=== PATIENT | female | born 1990 | race African-American/Black ===

== ENCOUNTER 2019-04-12 17:47 | Emergency (ER) | payer OTHER ==
[~2019-04-12] VITALS: Ht 165.1 cm; Wt 147.0 kg
[~2019-04-12 17:47] MED LIST: AMOXICILLIN 50500 M1 PO; NOHOMEMEDICATIONS
[2019-04-12] MEDS ORDERED: CLARITIN-D 121 EAC1 PO (21:52)
[2019-04-12] MEDS ORDERED: FLONASE 0.05%50 MCG NASAL (21:52)
[2019-04-12] MEDS ORDERED: PREDNISONE 20 M20 MG PO (21:52)
[2019-04-12 22:00] VITALS: BP 115/73
== END 2019-04-12 22:01 | disposition home or self-care (01) ==
LOC: EDBD 17:47 → ER 17:47
DX: R51 Headache (principal); J32.0 Chronic maxillary sinusitis; J45.909 Unspecified asthma, uncomplicated; Z87.891 Personal history of nicotine dependence

== ENCOUNTER 2020-09-30 21:48 | Emergency (ER) | payer OTHER ==
[~2020-09-30] VITALS: Ht 165.1 cm; Wt 174.2 kg
[~2020-09-30 21:48] MED LIST changes: +CLARITIN-D 121 EAC1 PO; +FLONASE 0.05%50 MCG NASAL; +OCUFLOX5 ML OPHTHALMIC; +PREDNISONE 20 M20 MG PO
[2020-09-30 23:07] LABS: URINE BILIRUBIN NEGATIVE (Negative); URINE BLOOD 1+ (Negative); URINE CLARITY CLOUDY; URINE COLOR YELLOW; URINE GLUCOSE-RANDOM* NEGATIVE (Negative); URINE KETONES NEGATIVE (Negative); URINE NITRITE-REFLEX NEGATIVE (Negative); URINE PROTEIN (DIPSTICK) TRACE (Negative); URINE UROBILINOGEN 0.2 E.U./dl (0.2-1.0)
[2020-09-30 23:12] LABS: URINE LEUKOCYTES-REFLEX 3+ (Negative)
[2020-09-30 23:16] LABS: CASTS None Seen /LPF (None Seen); CRYSTALS None Seen /LPF (None Seen); MUCUS 4-6 Moderate strn/LPF (None Seen); SQUAMOUS 0-3 Few /LPF (0-3); URINE RBC 3-10 Few /HPF (NONE SEEN); URINE WBC-REFLEX >25 Many /HPF (0-5); WBC CLUMPS Moderate (None Seen)
[2020-09-30] MEDS ORDERED: MACROBID 100 M100 M1 PO (23:59)
[2020-10-01 00:32] VITALS: BP 124/84
[2020-10-03] MEDS ORDERED: FLAGYL500 M1 PO (08:37)
== END 2020-10-01 00:32 | disposition home or self-care (01) ==
LOC: ER 21:48
PROVIDERS: Emergency Medicine
DX: N39.0 Urinary tract infection, site not specified (principal); H60.92 Unspecified otitis externa, left ear; J45.909 Unspecified asthma, uncomplicated; F17.210 Nicotine dependence, cigarettes, uncomplicated

== ENCOUNTER 2020-10-16 15:04 | Emergency (ER) | payer OTHER ==
[~2020-10-16] VITALS: Ht 165.1 cm; Wt 174.2 kg
[~2020-10-16 15:04] MED LIST changes: +FLAGYL500 M1 PO; +MACROBID 100 M100 M1 PO
[2020-10-16 15:32] LABS: URINE BILIRUBIN NEGATIVE (Negative); URINE BLOOD 1+ (Negative); URINE COLOR YELLOW; URINE GLUCOSE-RANDOM* NEGATIVE (Negative); URINE KETONES NEGATIVE (Negative); URINE NITRITE-REFLEX NEGATIVE (Negative); URINE PROTEIN (DIPSTICK) 1+ (Negative); URINE SPECIFIC GRAVITY >= 1.030 (1.005-1.035); URINE UROBILINOGEN 0.2 E.U./dl (0.2-1.0)
[2020-10-16 15:33] LABS: URINE CLARITY CLOUDY; URINE LEUKOCYTES-REFLEX 2+ (Negative)
[2020-10-16 15:44] LABS: SQUAMOUS 0-3 Few /LPF (0-3)
[2020-10-16 15:45] LABS: CASTS None Seen /LPF (None Seen); CRYSTALS None Seen /LPF (None Seen); URINE RBC 3-10 Few /HPF (NONE SEEN)
[2020-10-16 17:49] LABS: ABSOLUTE NEUTROPHILS 7.3 thou/uL (1.4-8.2); BASOPHILS 1.2 % (0.0-2.0); EOSINOPHILS 2.8 % (0.0-3.0); HEMATOCRIT 37.2 % (37.0-47.0); HEMOGLOBIN 11.9 gm/dL (12.0-15.0); LYMPHOCYTES 26.6 % (24.0-44.0); MCH 24.9 pg (26.0-34.0); MCHC 32.1 g/dL (28.0-37.0); MCV 77.7 fL (80.0-100.0); MONOCYTES 4.3 % (1.0-8.0); PLATELET COUNT 383 thou/uL (150-400); POLYS 65.1 % (36.0-66.0); RBC 4.79 mil/uL (4.20-5.00); RDW 16.7 % (10.5-14.5); WBC 11.2 thou/uL (4.0-11.0)
[2020-10-16 17:59] LABS: CALCIUM 8.8 mg/dL (8.5-10.1)
[2020-10-16 18:05] LABS: ALBUMIN 3.1 g/dL (3.4-5.0); TOTAL BILIRUBIN 0.7 mg/dL (0.2-1.0); TOTAL PROTEIN 8.1 g/dL (6.4-8.2)
[2020-10-16] MEDS ORDERED: FLAGYL500 M1 PO (19:23)
[2020-10-16 19:29] VITALS: BP 135/89
== END 2020-10-16 19:29 | disposition home or self-care (01) ==
LOC: ER 15:04
PROVIDERS: Physician Assistant
DX: A59.01 Trichomonal vulvovaginitis (principal); M54.5 Low back pain; Z87.891 Personal history of nicotine dependence; J45.909 Unspecified asthma, uncomplicated; Z79.899 Other long term (current) drug therapy

== ENCOUNTER 2021-02-26 15:40 | Emergency (ER) | payer OTHER ==
[~2021-02-26] VITALS: Ht 165.1 cm; Wt 172.4 kg
[2021-02-26 16:36] LABS: URINE BILIRUBIN NEGATIVE (Negative); URINE BLOOD TRACE (Negative); URINE CLARITY CLEAR; URINE COLOR YELLOW; URINE GLUCOSE-RANDOM* NEGATIVE (Negative); URINE KETONES NEGATIVE (Negative); URINE LEUKOCYTES-REFLEX NEGATIVE (Negative); URINE NITRITE-REFLEX NEGATIVE (Negative); URINE PROTEIN (DIPSTICK) NEGATIVE (Negative); URINE UROBILINOGEN 0.2 E.U./dl (0.2-1.0)
[2021-02-26 17:00] LABS: HEMATOCRIT 41.2 % (37.0-47.0); HEMOGLOBIN 13.4 gm/dL (12.0-15.0); MCH 25.2 pg (26.0-34.0); MCHC 32.5 g/dL (28.0-37.0); MCV 77.6 fL (80.0-100.0); RBC 5.31 mil/uL (4.20-5.00); WBC 8.7 thou/uL (4.0-11.0)
[2021-02-26 17:08] LABS: CALCIUM 8.9 mg/dL (8.5-10.1)
[2021-02-26 17:15] LABS: ALBUMIN 3.3 g/dL (3.4-5.0); TOTAL BILIRUBIN 0.8 mg/dL (0.2-1.0); TOTAL PROTEIN 8.2 g/dL (6.4-8.2)
[2021-02-26] MEDS ORDERED: AUGMENTIN 875-1 EACH PO (17:31)
[2021-02-26] MEDS ORDERED: MEDROLDOSEPACK PO (17:31)
[2021-02-26 17:49] VITALS: BP 136/96
== END 2021-02-26 17:53 | disposition home or self-care (01) ==
LOC: ER 15:40
PROVIDERS: Nurse Practitioner Family
DX: J32.1 Chronic frontal sinusitis (principal); R20.2 Paresthesia of skin; H66.42 Suppurative otitis media, unspecified, left ear; J45.909 Unspecified asthma, uncomplicated; Z79.891 Long term (current) use of opiate analgesic; Z79.899 Other long term (current) drug therapy; Z87.891 Personal history of nicotine dependence

== ENCOUNTER 2021-02-28 23:25 | Emergency (ER) | payer OTHER ==
[~2021-02-28] VITALS: Ht 165.1 cm; Wt 172.4 kg
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
[~2021-02-28 23:25] MED LIST changes: +AUGMENTIN 875-1 EACH PO; +MEDROLDOSEPACK PO
[2021-02-28 23:31] VITALS: BP 151/97
== END 2021-03-01 00:34 | disposition home or self-care (01) ==
LOC: ER 23:25
DX: R20.0 Anesthesia of skin (principal); R20.2 Paresthesia of skin; J45.909 Unspecified asthma, uncomplicated; Z79.891 Long term (current) use of opiate analgesic; Z79.899 Other long term (current) drug therapy; Z87.891 Personal history of nicotine dependence

== ENCOUNTER 2021-03-13 16:56 | Emergency (ER) | payer OTHER ==
[~2021-03-13] VITALS: Ht 165.1 cm; Wt 172.4 kg
[2021-03-13 17:04] VITALS: BP 163/100
== END 2021-03-13 17:38 | disposition home or self-care (01) ==
LOC: ER 16:56
DX: H66.92 Otitis media, unspecified, left ear (principal); J45.909 Unspecified asthma, uncomplicated; Z79.899 Other long term (current) drug therapy; Z87.891 Personal history of nicotine dependence